=== PATIENT | female | born 1960 | race Caucasian/White ===

== ENCOUNTER → 2019-07-11 10:19 | Outpatient (BNVA) | payer OTHER, SELFPAY | PROVIDERS: Family Provider Family Medicine; PCP Family Medicine; Visit Provider Internal Medicine Rheumatology | DX: M25.541 Pain in joints of right hand (principal); M25.542 Pain in joints of left hand; N18.3 Chronic kidney disease, stage 3 (moderate); R70.0 Elevated erythrocyte sedimentation rate; R53.83 Other fatigue; E61.1 Iron deficiency; M79.7 Fibromyalgia | CPT/HCPCS: 99214 ==

== ENCOUNTER → 2020-03-07 10:34 | Outpatient (BNVA) | payer OTHER, SELFPAY | PROVIDERS: Family Provider Family Medicine; PCP Family Medicine; Visit Provider Internal Medicine Rheumatology | DX: M19.90 Unspecified osteoarthritis, unspecified site (principal); R76.8 Other specified abnormal immunological findings in serum; I12.9 Hypertensive chronic kidney disease with stage 1 through stage 4 chronic kidney disease, or unspecified chronic kidney disease; N18.30 Chronic kidney disease, stage 3 unspecified; M35.9 Systemic involvement of connective tissue, unspecified; E61.1 Iron deficiency; M25.541 Pain in joints of right hand; M25.542 Pain in joints of left hand; M79.7 Fibromyalgia; R53.83 Other fatigue; R70.0 Elevated erythrocyte sedimentation rate | CPT/HCPCS: 99214 ==